=== PATIENT | female | born 1955 | race Caucasian/White ===

== ENCOUNTER 2020-03-14 07:15 | Inpatient (IN) | payer SELFPAY ==
[~2020-03-14] VITALS: Ht 167.6 cm; Wt 99.5 kg
--- NOTE | 2020-03-14 07:30 | NUR ---
bib AMB from home. yesterday at 10pm pt started having bloody diarrhea. has had 10 episodes of explosive episodes. pictures from EMS showed a toliet bowl with blood and small clots. denies abd pain, n/v, NSAID use, ETOH use, or hx of bloody stools.
--- NOTE | 2020-03-14 07:37 | NUR ---
pt ambulated to bedside commode without complication or dizziness.
[2020-03-14] MEDS ORDERED: SODIUM CHLORIDE FLUSH 10ML SYR IVF ONE (08:00)
[2020-03-14] MEDS ORDERED: SODIUM CHLORIDE 0.9% 1,000ML IVBOLUS ONE (08:00)
--- NOTE | 2020-03-14 08:05 | NUR ---
pt passed some bloody clots
[2020-03-14 08:14] LABS: BASOPHILS % (AUTO) 1 % (0-1); EOSINOPHILS % (AUTO) 0 % (1-7); LYMPHOCYTES % (AUTO) 20 % (22-44); MEAN CORPUSCULAR HEMOGLOBIN 26.8 pg (27.0-34.8); MEAN CORPUSCULAR HGB CONC 32.3 g/dL (32.4-35.8); MEAN PLATELET VOLUME 7.3 fL (7.4-10.4); MONOCYTES % (AUTO) 4 % (2-9); NEUTROPHILS % (AUTO) 75 % (42-75); PLATELET COUNT 458 x10^3/uL (130-400); RED BLOOD COUNT 4.67 x10^6/uL (3.82-5.3); RED CELL DISTRIBUTION WIDTH 14.7 % (9.6-15.2)
[2020-03-14 08:17] LABS: INTERNATIONAL NORMALIZED RATIO 0.97 (0.93-1.1); PROTHROMBIN TIME 10.3 Seconds (9.6-11.5)
[2020-03-14 08:18] LABS: ALBUMIN 3.1 g/dL (3.4-5.0); ANION GAP 4 mmol/L (5-15); CHLORIDE 112 mmol/L (98-107)
[2020-03-14 08:21] LABS: ALANINE AMINOTRANSFERASE 19 U/L (12-78); ALKALINE PHOSPHATASE 89 U/L (45-117); BILIRUBIN,TOTAL 0.6 mg/dL (0.2-1.0); CREATININE 0.69 mg/dL (0.55-1.02); TOTAL PROTEIN 6.5 g/dL (6.4-8.2)
[2020-03-14 08:29] LABS: MD NO
--- NOTE | 2020-03-14 08:52 | NUR ---
CT READY BUT PT NEEDS TO USE BATHROOOM FIRST
[2020-03-14] MEDS ORDERED: OMNIPAQUE 350 MG/ML, 100ML BOTTLE ONE (09:18)
--- NOTE | 2020-03-14 09:47 | NUR ---
pt has had no more bloody stools but has urinated once. vss.pt off oxygen
--- NOTE | 2020-03-14 10:15 | NUR ---
pt sleeping in bed. vss. will continue to monitor.
[2020-03-14] MEDS ORDERED: SODIUM CHLORIDE FLUSH 10ML SYR IVF PRN (11:00)
[2020-03-14] MEDS ORDERED: SODIUM CHLORIDE 0.9% 1,000 ML IV ONE (11:00)
--- NOTE | 2020-03-14 11:17 | NUR ---
educated pt on admission and the need to stay to investigate where the blood was coming from. pt was initally adamant about leaving, saying "I don't want to find out what is wrong with me and there is no way I can afford this stay." explained her plan of care, the importance of staying, and billing process. pt has agreed to stay.
[2020-03-14] MEDS ORDERED: ONDANSETRON ODT 4 MG PO PRN (12:30)
[2020-03-14] MEDS: SODIUM CHLORIDE 0.9% 1,000 ML IV SCH ×2 (12:30→21:44)
[2020-03-14 12:54] VITALS: BP 114/75
[2020-03-14] MEDS ORDERED: GOLYTELY 4,000ML ORAL.SOL PO ONE (15:00)
[2020-03-14] MEDS: ONDANSETRON 2MG/ML, 2ML IVPush PRN (17:54)
[2020-03-14] MEDS: ACETAMINOPHEN 325 MG TABLET PO PRN (18:41)
[2020-03-14 19:13] VITALS: BP 98/60
[2020-03-15 01:05] VITALS: BP 101/57
[2020-03-15 02:51] LABS: ALANINE AMINOTRANSFERASE 15 U/L (12-78); ALBUMIN 2.8 g/dL (3.4-5.0); ANION GAP 1 mmol/L (5-15); BASOPHILS % (AUTO) 1 % (0-1); CALCIUM 7.6 mg/dL (8.5-10.1); CHLORIDE 114 mmol/L (98-107); CREATININE 0.64 mg/dL (0.55-1.02); EOSINOPHILS % (AUTO) 1 % (1-7); LYMPHOCYTES % (AUTO) 40 % (22-44); MEAN CORPUSCULAR HEMOGLOBIN 27.3 pg (27.0-34.8); MEAN CORPUSCULAR HGB CONC 32.4 g/dL (32.4-35.8); MEAN PLATELET VOLUME 7.3 fL (7.4-10.4); MONOCYTES % (AUTO) 6 % (2-9); NEUTROPHILS % (AUTO) 53 % (42-75); PLATELET COUNT 412 x10^3/uL (130-400); RED BLOOD COUNT 4.15 x10^6/uL (3.82-5.3); RED CELL DISTRIBUTION WIDTH 15.1 % (9.6-15.2)
[2020-03-15 02:53] LABS: ALKALINE PHOSPHATASE 73 U/L (45-117); BILIRUBIN,TOTAL 0.6 mg/dL (0.2-1.0); TOTAL PROTEIN 5.8 g/dL (6.4-8.2)
[2020-03-15 02:56] LABS: MD NO
[2020-03-15 07:31] VITALS: BP 95/58
[2020-03-15 07:40] VITALS: BP 95/60
[2020-03-15] MEDS ORDERED: SODIUM CHLORIDE 0.9% 500 ML IV SCH ×2 (09:45→10:00)
[2020-03-15 10:03] VITALS: BP 122/73
[2020-03-15] MEDS ORDERED: CHLORHEXIDINE 15 ML UDC ONE ×2 (10:03→11:00)
[2020-03-15] MEDS: ONDANSETRON 2MG/ML, 2ML IVPush PRN (10:23)
[2020-03-15] MEDS ORDERED: CHLORHEXIDINE 15 ML UDC MM ONE (11:30)
[2020-03-15] MEDS ORDERED: PROPOFOL 10 MG/ML, 50ML ONE (11:49)
[2020-03-15] MEDS ORDERED: ACETAMINOPHEN 325 MG TABLET ONE (12:24)
[2020-03-15] MEDS: ACETAMINOPHEN 325 MG TABLET PO PRN ×2 (12:26→23:30)
[2020-03-15 14:53] VITALS: BP 101/68
[2020-03-15] MEDS: SODIUM CHLORIDE 0.9% 1,000 ML IV SCH (14:53)
[2020-03-15] MEDS: ALBUMIN HUMAN 25% 100 ML IV SCH ×2 (16:48→22:16)
[2020-03-15 18:11] VITALS: BP 96/66
[2020-03-16] VITALS (10 sets, daily range): BP systolic 107–126; BP diastolic 68–76
[2020-03-16 02:35] LABS: BASOPHILS % (AUTO) 1 % (0-1); EOSINOPHILS % (AUTO) 2 % (1-7); LYMPHOCYTES % (AUTO) 35 % (22-44); MEAN CORPUSCULAR HEMOGLOBIN 27.1 pg (27.0-34.8); MEAN CORPUSCULAR HGB CONC 32.5 g/dL (32.4-35.8); MEAN PLATELET VOLUME 7.2 fL (7.4-10.4); MONOCYTES % (AUTO) 6 % (2-9); NEUTROPHILS % (AUTO) 57 % (42-75); PLATELET COUNT 334 x10^3/uL (130-400); RED BLOOD COUNT 3.24 x10^6/uL (3.82-5.3); RED CELL DISTRIBUTION WIDTH 14.9 % (9.6-15.2)
[2020-03-16 02:37] LABS: ANION GAP 1 mmol/L (5-15); CALCIUM 7.3 mg/dL (8.5-10.1); CHLORIDE 116 mmol/L (98-107); CREATININE 0.47 mg/dL (0.55-1.02)
[2020-03-16 02:42] LABS: MD NO
[2020-03-16] MEDS ORDERED: POTASSIUM CHLORIDE 20 MEQ TAB.ER.PRT PO ONE (08:30)
[2020-03-16] MEDS ORDERED: MAGNESIUM SULFATE PMX 2GM/50ML 50 ML IV ONE (08:30)
[2020-03-16] MEDS ORDERED: SODIUM CHLORIDE 0.9% 1,000 ML IV SCH (12:30)
[2020-03-16] MEDS ORDERED: FERR324T5 PO (13:36)
[2020-03-16] MEDS ORDERED: NICO-486 TD (13:43)
[2020-03-16 14:45] LABS: HEMOGLOBIN BY BLOOD GAS ANALYZ 10.5 g/dL (14.0-18.0); O2 FLOW ROOM AIR L/min
[2020-03-16] MEDS ORDERED: ACETAMINOPHEN 325 MG TABLET PO ONE (16:30)
[2020-03-16] MEDS ORDERED: DIPHENHYDRAMINE 12.5MG/5ML, 10ML UDC PO ONE (16:30)
[2020-03-17 00:59] VITALS: BP 101/67
[2020-03-17 05:58] LABS: BASOPHILS % (AUTO) 2 % (0-1); EOSINOPHILS % (AUTO) 2 % (1-7); LYMPHOCYTES % (AUTO) 28 % (22-44); MEAN CORPUSCULAR HEMOGLOBIN 27.8 pg (27.0-34.8); MEAN PLATELET VOLUME 6.9 fL (7.4-10.4); MONOCYTES % (AUTO) 7 % (2-9); NEUTROPHILS % (AUTO) 62 % (42-75); PLATELET COUNT 412 x10^3/uL (130-400); RED BLOOD COUNT 3.92 x10^6/uL (3.82-5.3); RED CELL DISTRIBUTION WIDTH 14.9 % (9.6-15.2)
[2020-03-17 06:00] LABS: MD NO
[2020-03-17 06:06] LABS: ANION GAP 3 mmol/L (5-15); CALCIUM 8.3 mg/dL (8.5-10.1); CHLORIDE 115 mmol/L (98-107); CREATININE 0.55 mg/dL (0.55-1.02)
[2020-03-17 07:05] VITALS: BP 120/78
[2020-03-17 10:21] LABS: FIO2 ROOM AIR %
[2020-03-17 13:40] VITALS: BP 134/82
== END 2020-03-17 15:10 | disposition home or self-care (01) | DRG 378 ==
LOC: ED 09:29 → EDIP 11:07 → 3N 12:50 → DCLOUNGE 03-17 15:00
PROVIDERS: ADMIT Family Medicine; ATTEND Internal Medicine
PROC: 0DBK8ZZ Excision of Ascending Colon, Via Natural or Artificial Opening Endoscopic (ICD-10-PCS; principal; 2020-03-15 12:00)
PROC: 30233N1 Transfusion of Nonautologous Red Blood Cells into Peripheral Vein, Percutaneous Approach (ICD-10-PCS; 2020-03-16)
DX: K57.31 Diverticulosis of large intestine without perforation or abscess with bleeding (principal); D62 Acute posthemorrhagic anemia; J96.11 Chronic respiratory failure with hypoxia; Z20.822 Contact with and (suspected) exposure to COVID-19; D72.828 Other elevated white blood cell count; I95.9 Hypotension, unspecified; E11.65 Type 2 diabetes mellitus with hyperglycemia; J44.9 Chronic obstructive pulmonary disease, unspecified; F17.200 Nicotine dependence, unspecified, uncomplicated; K64.0 First degree hemorrhoids; Z88.0 Allergy status to penicillin; Z82.3 Family history of stroke; Z71.6 Tobacco abuse counseling; Z79.899 Other long term (current) drug therapy
CPT/HCPCS: 36415; 36600; 71045; 74177; 80048; 80053; 82803; 83036; 83735; 85014; 85018; 85025; 85610; 85730; 86850; 86900; 86923; 87635; 88305; 93005; 99285; G0378; J2405; J2704; P9047; Q9967; J3475; J7030; J7040; P9016

== ENCOUNTER 2020-03-17 21:51 | Emergency (ER) | payer SELFPAY ==
[~2020-03-17] VITALS: Ht 167.6 cm; Wt 96.0 kg
[~2020-03-17 21:51] MED LIST: FERR324T5 PO; NICO-486 TD
[2020-03-17 23:01] LABS: BASOPHILS % (AUTO) 1 % (0-1); EOSINOPHILS % (AUTO) 2 % (1-7); LYMPHOCYTES % (AUTO) 20 % (22-44); MEAN CORPUSCULAR HGB CONC 32.4 g/dL (32.4-35.8); MONOCYTES % (AUTO) 5 % (2-9); NEUTROPHILS % (AUTO) 73 % (42-75); PLATELET COUNT 472 x10^3/uL (130-400); RED BLOOD COUNT 4.39 x10^6/uL (3.82-5.3); RED CELL DISTRIBUTION WIDTH 15.2 % (9.6-15.2)
[2020-03-17 23:03] LABS: MD NO
[2020-03-17 23:08] LABS: ALBUMIN 3.6 g/dL (3.4-5.0); ANION GAP 1 mmol/L (5-15); CALCIUM 8.6 mg/dL (8.5-10.1); CHLORIDE 111 mmol/L (98-107)
[2020-03-17 23:09] LABS: INTERNATIONAL NORMALIZED RATIO 0.95 (0.93-1.1); PROTHROMBIN TIME 10.1 Seconds (9.6-11.5)
[2020-03-17 23:11] LABS: ALANINE AMINOTRANSFERASE 26 U/L (12-78); ALKALINE PHOSPHATASE 83 U/L (45-117); BILIRUBIN,TOTAL 0.5 mg/dL (0.2-1.0); CREATININE 0.66 mg/dL (0.55-1.02); TOTAL PROTEIN 6.8 g/dL (6.4-8.2)
[2020-03-18 00:08] VITALS: BP 146/84
== END 2020-03-18 00:10 | disposition home or self-care (01) ==
LOC: ED 22:31
DX: K62.5 Hemorrhage of anus and rectum (principal); F17.210 Nicotine dependence, cigarettes, uncomplicated
CPT/HCPCS: 36415; 80053; 85025; 85610; 86850; 86900; 99283; 99406

== ENCOUNTER 2020-09-06 08:59 | Inpatient (IN) | payer OTHER ==
[~2020-09-06] VITALS: Ht 160 cm; Wt 100.5 kg
--- NOTE | 2020-09-06 09:15 | NUR ---
PT BIB EMS FOR COVID SYMPTOMS. SOB, WEAKNESS, LOSS OF TASTE AND SMELL. PT DID NOT RECIEVE VACCINE, PT RA 72. ON 5 L NOW 92%. PT SYMPTOMS STARTED 5 DAYS AGO. DENIES CP. STATES SHE IS DIZZY W EXERTION. PT ON CARD MONITOR. OCCASIONAL COUGH.
[2020-09-06 10:04] LABS: BASOPHILS % (AUTO) 1 % (0-1); EOSINOPHILS % (AUTO) 0 % (1-7); LYMPHOCYTES % (AUTO) 13 % (22-44); MEAN CORPUSCULAR HEMOGLOBIN 26.2 pg (27.0-34.8); MEAN CORPUSCULAR HGB CONC 32.7 g/dL (32.4-35.8); MEAN PLATELET VOLUME 7.3 fL (7.4-10.4); MONOCYTES % (AUTO) 2 % (2-9); NEUTROPHILS % (AUTO) 84 % (42-75); PLATELET COUNT 304 x10^3/uL (130-400); RED BLOOD COUNT 5.75 x10^6/uL (3.82-5.3); RED CELL DISTRIBUTION WIDTH 17.5 % (9.6-15.2)
[2020-09-06 10:14] LABS: ALANINE AMINOTRANSFERASE 32 U/L (12-78); ALBUMIN 2.9 g/dL (3.4-5.0); ANION GAP 8 mmol/L (5-15); CALCIUM 7.9 mg/dL (8.5-10.1); CHLORIDE 108 mmol/L (98-107); CREATININE 0.57 mg/dL (0.55-1.02)
[2020-09-06 10:20] LABS: ALKALINE PHOSPHATASE 75 U/L (45-117); BILIRUBIN,TOTAL 0.4 mg/dL (0.2-1.0); TOTAL PROTEIN 6.8 g/dL (6.4-8.2)
--- NOTE | 2020-09-06 10:31 | NUR ---
PT REFUSING CXR. MD AT BEDSIDE. EDUCATED ON IMPORTANCE OF CXR. PT AGREEING TO HAVE IT DONE
[2020-09-06 10:39] LABS: D-DIMER (DIC) 1.57 ug/mlFEU (0.00-0.52)
--- NOTE | 2020-09-06 10:44 | NUR ---
CXR COMPLETE. PT ASSISTED TO BSC
[2020-09-06] MEDS ORDERED: SODIUM CHLORIDE 0.9% 1,000ML IVBOLUS ONE (11:00)
[2020-09-06] MEDS ORDERED: AZITHROMYCIN 500 MG in SODIUM CHLORIDE 0.9% 250 ML IV ONE (11:30)
[2020-09-06] MEDS ORDERED: CEFTRIAXONE 2 GM in DEXTROSE 5% 50 ML IVPB ONE (11:30)
--- NOTE | 2020-09-06 12:31 | NUR ---
HUMIDIFIER ADDED TO OXYGEN, GIVEN WATER. WAITING FOR ADMIT BED.
[2020-09-06] MEDS ORDERED: ONDANSETRON 2MG/ML, 2ML IVPush PRN (13:00)
[2020-09-06] MEDS ORDERED: OXYcodone IR 5MG TABLET PO PRN (13:00)
[2020-09-06] MEDS ORDERED: ONDANSETRON ODT 4 MG PO PRN (13:00)
[2020-09-06] MEDS ORDERED: DOCUSATE 100 MG CAPSULE PO PRN (13:00)
[2020-09-06] MEDS ORDERED: PROMETHAZINE 25 MG/ML, 1ML IM PRN (13:00)
[2020-09-06] MEDS ORDERED: POLYETHYLENE GLYCOL 17 GM PACKET PO PRN (13:00)
[2020-09-06] MEDS ORDERED: ALBUTEROL HFA 90 MCG/SPRAY INH PRN (13:00)
[2020-09-06] MEDS ORDERED: morphine SULFATE 10 MG/ML, 1ML IVPush PRN (13:00)
[2020-09-06] MEDS ORDERED: hydrALAzine 20 MG/ML, 1ML IVPush PRN (13:00)
[2020-09-06] MEDS ORDERED: BISACODYL 10 MG SUPP PR PRN (13:00)
--- NOTE | 2020-09-06 13:03 | NUR ---
REPORT TO HERI. PT READY FOR TRANSFER
[2020-09-06 13:37] VITALS: BP 125/84
[2020-09-06] MEDS ORDERED: CYCL10TA2 PO (13:37)
[2020-09-06] MEDS ORDERED: MONT10TA17 PO (13:37)
[2020-09-06] MEDS ORDERED: MENT1ADH TP (13:37)
[2020-09-06] MEDS ORDERED: UMEC1DIS PO (13:37)
[2020-09-06] MEDS ORDERED: ACET500T76 PO (13:37)
[2020-09-06] MEDS: DEXAMETHASONE 4 MG/ML, 1ML IVPush SCH (13:38)
[2020-09-06] MEDS: SODIUM CHLORIDE 0.9% 1,000 ML IV SCH (13:38)
[2020-09-06] MEDS: ASCORBIC ACID 500 MG TABLET PO SCH ×2 (13:40→20:16)
[2020-09-06] MEDS: CHOLECALCIFEROL 1,000 UNIT TABLET PO SCH (13:40)
[2020-09-06] MEDS: ZINC SULFATE 220 MG CAPSULE PO SCH (13:40)
[2020-09-06] MEDS: ENOXAPARIN 40 MG/0.4 ML SQ SCH (13:45)
[2020-09-06] MEDS: ACETAMINOPHEN 325 MG TABLET PO PRN (17:36)
[2020-09-06 18:35] VITALS: BP 104/80
[2020-09-06] MEDS: MELATONIN 5 MG TABLET PO SCH ×2 (20:16→20:20)
[2020-09-07] MEDS: SODIUM CHLORIDE 0.9% 1,000 ML IV SCH (01:30)
[2020-09-07 01:31] VITALS: BP 127/77
[2020-09-07 07:31] LABS: BASOPHILS % (AUTO) 0 % (0-1); EOSINOPHILS % (AUTO) 0 % (1-7); LYMPHOCYTES % (AUTO) 23 % (22-44); MEAN CORPUSCULAR HEMOGLOBIN 25.6 pg (27.0-34.8); MEAN CORPUSCULAR HGB CONC 31.8 g/dL (32.4-35.8); MEAN PLATELET VOLUME 7.2 fL (7.4-10.4); MONOCYTES % (AUTO) 4 % (2-9); NEUTROPHILS % (AUTO) 73 % (42-75); PLATELET COUNT 271 x10^3/uL (130-400); RED BLOOD COUNT 4.73 x10^6/uL (3.82-5.3); RED CELL DISTRIBUTION WIDTH 17.6 % (9.6-15.2)
[2020-09-07 07:40] LABS: ALANINE AMINOTRANSFERASE 20 U/L (12-78); ALBUMIN 1.8 g/dL (3.4-5.0); ANION GAP 7 mmol/L (5-15); CALCIUM 6.2 mg/dL (8.5-10.1); CHLORIDE 117 mmol/L (98-107); CHOLESTEROL, TOTAL 83 mg/dL (140-239); CREATININE 0.32 mg/dL (0.55-1.02)
[2020-09-07 07:49] LABS: ALKALINE PHOSPHATASE 57 U/L (45-117); BILIRUBIN,TOTAL 0.2 mg/dL (0.2-1.0); CHOL/HDL RATIO 2.1; HDL CHOL % 47 % (28-40); HDL CHOLESTEROL (DIRECT) 39 mg/dL (40-60); LDL CHOLESTEROL,CALCULATED 32 mg/dL (54-169); LDL/HDL RATIO 0.8 (0.5-3.0); TOTAL PROTEIN 4.9 g/dL (6.4-8.2); TRIGLYCERIDES 58 mg/dL (50-200); VLDL CHOLESTEROL 12 mg/dL (0-25)
[2020-09-07] MEDS: ASCORBIC ACID 500 MG TABLET PO SCH ×2 (07:51→19:44)
[2020-09-07] MEDS: DEXAMETHASONE 4 MG/ML, 1ML IVPush SCH (07:51)
[2020-09-07] MEDS: CHOLECALCIFEROL 1,000 UNIT TABLET PO SCH (07:51)
[2020-09-07] MEDS: ZINC SULFATE 220 MG CAPSULE PO SCH (07:51)
[2020-09-07 07:58] VITALS: BP 134/84
[2020-09-07] MEDS: AZITHROMYCIN 500 MG in SODIUM CHLORIDE 0.9% 250 ML IV SCH (09:00)
[2020-09-07] MEDS: CEFTRIAXONE 2 GM in DEXTROSE 5% 50 ML IVPB SCH (10:50)
[2020-09-07] MEDS: ENOXAPARIN 40 MG/0.4 ML SQ SCH (11:34)
[2020-09-07 14:55] VITALS: BP 113/76
[2020-09-07 18:47] VITALS: BP 127/79
[2020-09-07] MEDS: MELATONIN 5 MG TABLET PO SCH (19:47)
[2020-09-07] MEDS ORDERED: POTASSIUM PHOSPHATE 22 MEQ in SODIUM CHLORIDE 0.9% 500 ML IV ONE (23:30)
[2020-09-07] MEDS ORDERED: MAGNESIUM SULFATE PMX 4GM/100M 100 ML IVPB ONE (23:30)
[2020-09-08 01:23] VITALS: BP 116/71
[2020-09-08 05:59] LABS: BASOPHILS % (AUTO) 0 % (0-1); EOSINOPHILS % (AUTO) 0 % (1-7); LYMPHOCYTES % (AUTO) 14 % (22-44); MEAN CORPUSCULAR HGB CONC 32.9 g/dL (32.4-35.8); MEAN PLATELET VOLUME 7.2 fL (7.4-10.4); MONOCYTES % (AUTO) 6 % (2-9); NEUTROPHILS % (AUTO) 80 % (42-75); PLATELET COUNT 369 x10^3/uL (130-400); RED BLOOD COUNT 5.27 x10^6/uL (3.82-5.3); RED CELL DISTRIBUTION WIDTH 17.6 % (9.6-15.2)
[2020-09-08 06:12] LABS: ANION GAP 5 mmol/L (5-15); CALCIUM 7.8 mg/dL (8.5-10.1); CHLORIDE 111 mmol/L (98-107)
[2020-09-08 06:25] LABS: CREATININE 0.43 mg/dL (0.55-1.02); FREE T4 (FREE THYROXINE) 1.22 ng/dL (0.76-1.46)
[2020-09-08 07:56] VITALS: BP 119/79
[2020-09-08] MEDS: ASCORBIC ACID 500 MG TABLET PO SCH ×2 (08:50→21:08)
[2020-09-08] MEDS: CHOLECALCIFEROL 1,000 UNIT TABLET PO SCH (08:50)
[2020-09-08] MEDS: DEXAMETHASONE 4 MG/ML, 1ML IVPush SCH (08:50)
[2020-09-08] MEDS: AZITHROMYCIN 500 MG in SODIUM CHLORIDE 0.9% 250 ML IV SCH (08:51)
[2020-09-08] MEDS: ZINC SULFATE 220 MG CAPSULE PO SCH (09:17)
[2020-09-08] MEDS: CEFTRIAXONE 2 GM in DEXTROSE 5% 50 ML IVPB SCH (11:11)
[2020-09-08 12:49] VITALS: BP 112/71
[2020-09-08] MEDS: ENOXAPARIN 40 MG/0.4 ML SQ SCH (13:00)
[2020-09-08 20:51] VITALS: BP 119/74
[2020-09-08] MEDS: MELATONIN 5 MG TABLET PO SCH (21:09)
[2020-09-09 03:12] VITALS: BP 113/77
[2020-09-09 08:29] VITALS: BP 133/85
[2020-09-09] MEDS: CHOLECALCIFEROL 1,000 UNIT TABLET PO SCH (09:37)
[2020-09-09] MEDS: ZINC SULFATE 220 MG CAPSULE PO SCH (09:37)
[2020-09-09] MEDS: AZITHROMYCIN 500 MG in SODIUM CHLORIDE 0.9% 250 ML IV SCH (09:37)
[2020-09-09] MEDS: ASCORBIC ACID 500 MG TABLET PO SCH ×2 (09:37→21:23)
[2020-09-09] MEDS: DEXAMETHASONE 4 MG/ML, 1ML IVPush SCH (09:38)
[2020-09-09] MEDS ORDERED: REMDESIVIR 200 MG in SODIUM CHLORIDE 0.9% 250 ML IVPB ONE (11:00)
[2020-09-09 13:38] VITALS: BP 95/63
[2020-09-09] MEDS: ENOXAPARIN 40 MG/0.4 ML SQ SCH (14:14)
[2020-09-09] MEDS: CEFTRIAXONE 2 GM in DEXTROSE 5% 50 ML IVPB SCH (14:19)
[2020-09-09 20:30] VITALS: BP 131/82
[2020-09-09] MEDS: MELATONIN 5 MG TABLET PO SCH (21:23)
[2020-09-09 22:17] VITALS: BP 131/82
[2020-09-10 01:29] VITALS: BP 123/78
[2020-09-10 07:00] LABS: BASOPHILS % (AUTO) 0 % (0-1); EOSINOPHILS % (AUTO) 0 % (1-7); LYMPHOCYTES % (AUTO) 15 % (22-44); MEAN CORPUSCULAR HEMOGLOBIN 25.7 pg (27.0-34.8); MEAN CORPUSCULAR HGB CONC 32.5 g/dL (32.4-35.8); MEAN PLATELET VOLUME 7.2 fL (7.4-10.4); MONOCYTES % (AUTO) 10 % (2-9); NEUTROPHILS % (AUTO) 75 % (42-75); PLATELET COUNT 409 x10^3/uL (130-400); RED BLOOD COUNT 5.74 x10^6/uL (3.82-5.3)
[2020-09-10 07:06] LABS: ALANINE AMINOTRANSFERASE 39 U/L (12-78); ALBUMIN 2.6 g/dL (3.4-5.0); ANION GAP 3 mmol/L (5-15); CALCIUM 8.3 mg/dL (8.5-10.1); CHLORIDE 109 mmol/L (98-107); CREATININE 0.43 mg/dL (0.55-1.02)
[2020-09-10 07:08] LABS: ALKALINE PHOSPHATASE 77 U/L (45-117); BILIRUBIN,TOTAL 0.5 mg/dL (0.2-1.0); TOTAL PROTEIN 6.7 g/dL (6.4-8.2)
[2020-09-10 08:02] VITALS: BP 127/86
[2020-09-10] MEDS: CHOLECALCIFEROL 1,000 UNIT TABLET PO SCH (09:02)
[2020-09-10] MEDS: DEXAMETHASONE 4 MG/ML, 1ML IVPush SCH (09:03)
[2020-09-10] MEDS: ZINC SULFATE 220 MG CAPSULE PO SCH (09:03)
[2020-09-10] MEDS: AZITHROMYCIN 500 MG in SODIUM CHLORIDE 0.9% 250 ML IV SCH (09:03)
[2020-09-10] MEDS: ASCORBIC ACID 500 MG TABLET PO SCH ×2 (09:03→20:18)
[2020-09-10] MEDS: CEFTRIAXONE 2 GM in DEXTROSE 5% 50 ML IVPB SCH (10:36)
[2020-09-10] MEDS: REMDESIVIR 100 MG in SODIUM CHLORIDE 0.9% 250 ML IVPB SCH (12:42)
[2020-09-10] MEDS: ENOXAPARIN 40 MG/0.4 ML SQ SCH (12:54)
[2020-09-10 13:40] VITALS: BP 134/84
[2020-09-10 13:59] VITALS: BP 138/92
[2020-09-10] MEDS: MELATONIN 5 MG TABLET PO SCH (20:18)
[2020-09-10 20:19] VITALS: BP 149/92
[2020-09-10 22:56] VITALS: BP 132/86
[2020-09-11] MEDS ORDERED: ENOXAPARIN 40 MG/0.4 ML SQ SCH ×2 (01:00→12:30)
[2020-09-11 01:12] VITALS: BP 141/90
[2020-09-11 05:21] LABS: BASOPHILS % (AUTO) 1 % (0-1); EOSINOPHILS % (AUTO) 0 % (1-7); LYMPHOCYTES % (AUTO) 19 % (22-44); MEAN CORPUSCULAR HEMOGLOBIN 26.1 pg (27.0-34.8); MEAN CORPUSCULAR HGB CONC 32.8 g/dL (32.4-35.8); MEAN PLATELET VOLUME 7.1 fL (7.4-10.4); MONOCYTES % (AUTO) 13 % (2-9); NEUTROPHILS % (AUTO) 67 % (42-75); PLATELET COUNT 522 x10^3/uL (130-400); RED BLOOD COUNT 6.01 x10^6/uL (3.82-5.3); RED CELL DISTRIBUTION WIDTH 16.8 % (9.6-15.2)
[2020-09-11 05:29] LABS: ALANINE AMINOTRANSFERASE 39 U/L (12-78); ALBUMIN 2.7 g/dL (3.4-5.0); ANION GAP 7 mmol/L (5-15); CALCIUM 8.8 mg/dL (8.5-10.1); CHLORIDE 105 mmol/L (98-107); CREATININE 0.54 mg/dL (0.55-1.02)
[2020-09-11 05:31] LABS: ALKALINE PHOSPHATASE 78 U/L (45-117); BILIRUBIN,TOTAL 0.7 mg/dL (0.2-1.0); TOTAL PROTEIN 7.2 g/dL (6.4-8.2)
[2020-09-11 08:00] VITALS: BP 123/83
[2020-09-11] MEDS: DEXAMETHASONE 4 MG/ML, 1ML IVPush SCH (08:32)
[2020-09-11] MEDS: AZITHROMYCIN 500 MG in SODIUM CHLORIDE 0.9% 250 ML IV SCH (08:32)
[2020-09-11] MEDS: ZINC SULFATE 220 MG CAPSULE PO SCH (08:33)
[2020-09-11] MEDS: ACETAMINOPHEN 325 MG TABLET PO PRN ×2 (08:33→13:03)
[2020-09-11] MEDS: CHOLECALCIFEROL 1,000 UNIT TABLET PO SCH (08:33)
[2020-09-11] MEDS: ASCORBIC ACID 500 MG TABLET PO SCH ×2 (08:33→20:39)
[2020-09-11] MEDS: ENOXAPARIN 80 MG/0.8 ML SQ SCH (12:30)
[2020-09-11] MEDS: CEFTRIAXONE 2 GM in DEXTROSE 5% 50 ML IVPB SCH (12:31)
[2020-09-11] MEDS: REMDESIVIR 100 MG in SODIUM CHLORIDE 0.9% 250 ML IVPB SCH (13:03)
[2020-09-11 14:50] VITALS: BP 123/79
[2020-09-11 19:01] VITALS: BP 131/80
[2020-09-11 19:42] VITALS: BP 111/74
[2020-09-11] MEDS: MELATONIN 5 MG TABLET PO SCH (20:39)
[2020-09-12 02:17] VITALS: BP 105/70
[2020-09-12 08:31] VITALS: BP 109/74
[2020-09-12] MEDS: AZITHROMYCIN 500 MG in SODIUM CHLORIDE 0.9% 250 ML IV SCH (10:42)
[2020-09-12] MEDS: ASCORBIC ACID 500 MG TABLET PO SCH ×2 (10:42→20:53)
[2020-09-12] MEDS: DEXAMETHASONE 4 MG/ML, 1ML IVPush SCH (10:42)
[2020-09-12] MEDS: ZINC SULFATE 220 MG CAPSULE PO SCH (10:42)
[2020-09-12] MEDS: CHOLECALCIFEROL 1,000 UNIT TABLET PO SCH (10:43)
[2020-09-12] MEDS: CEFTRIAXONE 2 GM in DEXTROSE 5% 50 ML IVPB SCH (13:22)
[2020-09-12] MEDS: ENOXAPARIN 80 MG/0.8 ML SQ SCH (13:23)
[2020-09-12 14:48] VITALS: BP 102/70
[2020-09-12] MEDS: REMDESIVIR 100 MG in SODIUM CHLORIDE 0.9% 250 ML IVPB SCH (15:18)
[2020-09-12 18:43] VITALS: BP 106/69
[2020-09-12] MEDS: MELATONIN 5 MG TABLET PO SCH (20:53)
[2020-09-13 01:41] VITALS: BP 107/77
[2020-09-13 06:48] VITALS: BP 118/76
[2020-09-13] MEDS: DEXAMETHASONE 4 MG/ML, 1ML IVPush SCH (10:13)
[2020-09-13] MEDS: ZINC SULFATE 220 MG CAPSULE PO SCH (10:13)
[2020-09-13] MEDS: AZITHROMYCIN 500 MG in SODIUM CHLORIDE 0.9% 250 ML IV SCH (10:13)
[2020-09-13] MEDS: CHOLECALCIFEROL 1,000 UNIT TABLET PO SCH (10:14)
[2020-09-13] MEDS: ASCORBIC ACID 500 MG TABLET PO SCH ×2 (10:14→21:46)
[2020-09-13] MEDS: CEFTRIAXONE 2 GM in DEXTROSE 5% 50 ML IVPB SCH (12:32)
[2020-09-13] MEDS: ENOXAPARIN 80 MG/0.8 ML SQ SCH (12:35)
[2020-09-13] MEDS: REMDESIVIR 100 MG in SODIUM CHLORIDE 0.9% 250 ML IVPB SCH (13:28)
[2020-09-13 13:57] VITALS: BP 106/71
[2020-09-13] MEDS ORDERED: ALBUTEROL HFA 90 MCG/SPRAY INH PRN (14:00)
[2020-09-13 20:00] VITALS: BP 122/79
[2020-09-13] MEDS: MELATONIN 5 MG TABLET PO SCH (21:00)
[2020-09-14 01:09] VITALS: BP 129/81
[2020-09-14 06:29] LABS: BASOPHILS % (AUTO) 1 % (0-1); EOSINOPHILS % (AUTO) 0 % (1-7); LYMPHOCYTES % (AUTO) 16 % (22-44); MEAN CORPUSCULAR HEMOGLOBIN 25.4 pg (27.0-34.8); MEAN CORPUSCULAR HGB CONC 32.2 g/dL (32.4-35.8); MEAN PLATELET VOLUME 7.3 fL (7.4-10.4); MONOCYTES % (AUTO) 10 % (2-9); NEUTROPHILS % (AUTO) 73 % (42-75); PLATELET COUNT 483 x10^3/uL (130-400); RED BLOOD COUNT 5.67 x10^6/uL (3.82-5.3); RED CELL DISTRIBUTION WIDTH 16.6 % (9.6-15.2)
[2020-09-14 06:36] LABS: ALBUMIN 2.4 g/dL (3.4-5.0); ANION GAP 4 mmol/L (5-15); CALCIUM 7.9 mg/dL (8.5-10.1); CHLORIDE 105 mmol/L (98-107)
[2020-09-14 06:42] LABS: ALANINE AMINOTRANSFERASE 27 U/L (12-78); ALKALINE PHOSPHATASE 66 U/L (45-117); BILIRUBIN,TOTAL 0.6 mg/dL (0.2-1.0)
[2020-09-14] MEDS: DEXAMETHASONE 4 MG/ML, 1ML IVPush SCH (09:08)
[2020-09-14] MEDS: ASCORBIC ACID 500 MG TABLET PO SCH ×2 (09:09→20:44)
[2020-09-14] MEDS: CHOLECALCIFEROL 1,000 UNIT TABLET PO SCH (09:09)
[2020-09-14] MEDS: ZINC SULFATE 220 MG CAPSULE PO SCH (09:09)
[2020-09-14 09:15] VITALS: BP 105/71
[2020-09-14] MEDS: ENOXAPARIN 80 MG/0.8 ML SQ SCH (12:48)
[2020-09-14 16:48] VITALS: BP 115/72
[2020-09-14 18:55] VITALS: BP 129/79
[2020-09-14] MEDS: MELATONIN 5 MG TABLET PO SCH (20:44)
[2020-09-14 21:54] VITALS: BP 122/77
[2020-09-15 00:53] VITALS: BP 114/75
[2020-09-15 04:19] VITALS: BP 100/69
[2020-09-15 07:16] VITALS: BP 122/79
[2020-09-15] MEDS: CHOLECALCIFEROL 1,000 UNIT TABLET PO SCH (09:16)
[2020-09-15] MEDS: ZINC SULFATE 220 MG CAPSULE PO SCH (09:16)
[2020-09-15] MEDS: ASCORBIC ACID 500 MG TABLET PO SCH (09:16)
[2020-09-15] MEDS: DEXAMETHASONE 4 MG/ML, 1ML IVPush SCH (09:16)
[2020-09-15 13:02] VITALS: BP 134/83
[2020-09-15] MEDS: ENOXAPARIN 80 MG/0.8 ML SQ SCH (14:36)
[2020-09-15] MEDS ORDERED: ZINC220C8 PO (16:06)
[2020-09-15] MEDS ORDERED: ASCO500T9 PO (16:06)
[2020-09-15] MEDS: ACETAMINOPHEN 325 MG TABLET PO PRN (19:48)
[2020-09-15 20:08] VITALS: BP 147/89
== END 2020-09-15 22:00 | disposition home or self-care (01) | DRG 871 ==
LOC: ED 09:14 → 4EST 11:08
PROVIDERS: ADMIT Internal Medicine; ATTEND Internal Medicine
PROC: XW033E5 Introduction of Remdesivir Anti-infective into Peripheral Vein, Percutaneous Approach, New Technology Group 5 (ICD-10-PCS; principal; 2020-09-09)
PROC: 5A0935A Assistance with Respiratory Ventilation, Less than 24 Consecutive Hours, High Flow/Velocity Cannula (ICD-10-PCS; 2020-09-09)
DX: A41.9 Sepsis, unspecified organism (principal); J12.82 Pneumonia due to coronavirus disease 2019; J96.01 Acute respiratory failure with hypoxia; U07.1 COVID-19; J44.0 Chronic obstructive pulmonary disease with (acute) lower respiratory infection; Z87.891 Personal history of nicotine dependence; Z82.3 Family history of stroke; Z99.81 Dependence on supplemental oxygen
CPT/HCPCS: 36415; 71045; 80048; 80053; 80061; 82728; 83036; 83605; 83615; 83735; 84100; 84145; 84439; 84443; 84481; 85025; 85049; 85379; 85384; 85610; 85730; 86140; 87040; 93005; 96365; G0378; J0456; J0696; J1100; J1650; J2405; U0005; J3475; J7030; J7040; J7050; U0003